=== PATIENT | female | born 1950 | race Caucasian/White ===

== ENCOUNTER 2020-11-19 18:40 | Inpatient (IN) | payer MEDICARE, OTHER ==
[~2020-11-19] VITALS: Ht 162.6 cm; Wt 73.9 kg
[~2020-11-19 18:40] MED LIST: ATORVASTATIN CA20 MG PO; CIPRO500 MG PO; ECOTRIN81 MG PO; FENOFIBRATE160 M1 PO; LEVOTHYROXINE50 MCG PO; LOSARTAN POTASS50 MG PO; METFORMIN HCL500 MG PO; NAPROSYN500 MG PO; NITROFURANTOIN100 MG PO; NORCO 5-325 TA1 EACH PO; PYRIDIUM200 MG PO; VIT D PO
[2020-11-19 19:47] LABS: HEMOGLOBIN 13.1 gm/dl (12.3-15.3); RED BLOOD COUNT 4.27 M/UL (4.00-5.10); WHITE BLOOD COUNT 19.4 K/UL (4.5-11.0)
[2020-11-19 20:10] LABS: BUN/CREATININE RATIO 42 (0-10)
[2020-11-19] MEDS ORDERED: VASCEPA1 GM PO (21:53)
[2020-11-19] MEDS ORDERED: PREMARIN VAG CR30 GM EXT (21:54)
[2020-11-19] MEDS ORDERED: VITAMIN C1000 MG PO (21:54)
[2020-11-19] MEDS ORDERED: CALCIUM500 MG PO (21:54)
[2020-11-19] MEDS ORDERED: VITAMIN E400 UNI1 PO (21:55)
[2020-11-21 05:44] LABS: HEMOGLOBIN 12.5 gm/dl (12.3-15.3); RED BLOOD COUNT 4.07 M/UL (4.00-5.10); WHITE BLOOD COUNT 11.5 K/UL (4.5-11.0)
[2020-11-21 05:59] LABS: BUN/CREATININE RATIO 30 (0-10)
[2020-11-22 06:27] LABS: WHITE BLOOD COUNT 12.7 K/UL (4.5-11.0)
[2020-11-22 06:31] LABS: RED BLOOD COUNT 3.31 M/UL (4.00-5.10)
[2020-11-22 06:32] LABS: HEMOGLOBIN 10.2 gm/dl (12.3-15.3)
[2020-11-22 07:03] LABS: BUN/CREATININE RATIO 26 (0-10)
[2020-11-23 05:19] LABS: HEMOGLOBIN 9.4 gm/dl (12.3-15.3); RED BLOOD COUNT 3.06 M/UL (4.00-5.10); WHITE BLOOD COUNT 10.6 K/UL (4.5-11.0)
[2020-11-23 05:38] LABS: BUN/CREATININE RATIO 30 (0-10)
[2020-11-23] MEDS ORDERED: ELIQUIS 2.5 MG2.5 MG PO (09:48)
[2020-11-23] MEDS ORDERED: PERCOCET 5/325 T1 EA PO (11:08)
== END 2020-11-23 16:45 | disposition home or self-care (01) | DRG 522 ==
LOC: ER1 18:40 → M/S 22:14 → CDU 22:14 → M/S 11-20 00:14
PROVIDERS: Family Medicine; Internal Medicine; Orthopaedic Surgery; ADMIT Internal Medicine
PROC: 0SRB04A Replacement of Left Hip Joint with Ceramic on Polyethylene Synthetic Substitute, Uncemented, Open Approach (ICD-10-PCS; principal; 2020-11-21 11:15)
DX: S72.002A Fracture of unspecified part of neck of left femur, initial encounter for closed fracture (principal); R65.10 Systemic inflammatory response syndrome (SIRS) of non-infectious origin without acute organ dysfunction; W01.0XXA Fall on same level from slipping, tripping and stumbling without subsequent striking against object, initial encounter; Y92.9 Unspecified place or not applicable; E66.9 Obesity, unspecified; Z20.822 Contact with and (suspected) exposure to COVID-19; I10 Essential (primary) hypertension; E11.9 Type 2 diabetes mellitus without complications; E03.9 Hypothyroidism, unspecified; D64.9 Anemia, unspecified; E78.5 Hyperlipidemia, unspecified; Z79.82 Long term (current) use of aspirin; Z79.899 Other long term (current) drug therapy
CPT/HCPCS: 36415; 71045; 72170; 73502; 76000; 80053; 82550; 82553; 82962; 84484; 85025; 85610; 86850; 86900; 86901; 90471; 93005; 96374; 96375; 97116-GP-CQ; 97162; 99285; C1776; J0171; J0360; J0690; J1100; J1170; J1885; J2001; J2250; J2270; J2405; J2704; J2710; J2795; J3010; J3370; J7030; J7050; J7120; U0002

== ENCOUNTER → 2021-05-20 | Outpatient (CLI) | payer MEDICARE ==
[~2021-05-20] MED LIST changes: +CALCIUM500 MG PO; +ELIQUIS 2.5 MG2.5 MG PO; +PERCOCET 5/325 T1 EA PO; +PREMARIN VAG CR30 GM EXT; +VASCEPA1 GM PO; +VITAMIN C1000 MG PO; +VITAMIN E400 UNI1 PO
== END ==
LOC: HEART 5 10:28
DX: R00.2 Palpitations (principal)